=== PATIENT | male | born 1935 | race Caucasian/White ===

== ENCOUNTER 2023-12-13 08:19 | Observation (INO) ==
--- NOTE | 2023-12-13 08:37 | Emergency Department Note ---
Impression & Plan Weakness, Elevated erythrocyte sedimentation rate, CRP elevated ED Provider Note NAME: MOMO PALMA AGE: 88 SEX: M : 1935 ARRIVES VIA: Walk-In INFORMANT: Patient ED PROVIDER(S): Saulo Hairston MD CHIEF COMPLAINT: Weakness, body pain. PLAN: Disposition: Admit MEDICAL DECISION MAKING: The patient is a pleasant 88-year-old gentleman who presents to emergency department via walk-in accompanied by family for evaluation of progressive worsening of symptoms of lower extremity pain and weakness that has been ongoing for months with development over the past 24 hours of bilateral shoulder pain and weakness with generalized bodyaches. Family described that the symptoms have been going on for months with progressive worsening and they describe a pattern where it will be difficult for him to move early in the day but as the day moves on he is able to move around better. The patient is a poor historian regarding his follow-up with his outpatient providers regarding his symptoms and reports they had suggested arthritis and [facility] and they recommended [facility] but he did not want to participate this. They report that the patient is at risk for tick exposures and wonders if this could be playing a role. They deny any fevers, cough, congestion, chest pain or shortness of breath. On evaluation patient is fatigued appearing but no distress, afebrile heart in the 100s and blood pressure 150s/70s and vital signs otherwise stable. He appears clinically dry. He has no edema or warmth of joints. He exhibits masked facies. However no tremors or cogwheel rigidity. He has 4/5 strength of bilateral lower and upper extremities with the exception of initiation of arm raise but his arms are raised passively he is able to maintain them elevated. Reflexes are within normal limits. There is no clonus. EKG without overt acute ischemia. CXR negative for acute cardiopulmonary process per my personal preliminary review/interpretation. Metallic foreign body of the right lower neck is noted and discussed with the patient and correlates with remote foreign body fragment resulting from an injury when he was hammering a steel spike into wood. WBC 13.5 K with lymphopenia and neutrophilia but no left shift, nonspecific. H/H11.7/35.6 without prior for comparison. Platelets 5 22K, nonspecific and likely reactive. Chemistry without metabolic acidosis. Electrolytes and LFTs are unremarkable. ESR and CRP are elevated 64 and 9.9, respectively. High- sensitivity troponin 9.9, within normal limits. Procalcitonin is not elevated. UA without evidence of infection. Respiratory BioFire was negative. CT of the head and CT of the head and neck were performed and were negative for ICH, ischemia or occlusion of large vessels. 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 Further description of radiodense metallic foreign body in the soft tissue of the right lower neck is again described and correlates with the patient's remote history of foreign body fragment and thus unable to have MRI. On re-evaluation the patient denied any significant improvement following IV fluid hydration and IV Decadron. However his did note that he was able to ambulate independently to the bathroom which was an improvement. We did discuss the extent of his symptoms which are progressively becoming more severe. Given elevated inflammatory markers suspect possible inflammatory process. Tickborne illness is also still considered though preliminary Lyme screen was negative as was Anaplasma and Babesia smears with DNA testing pending. Given the patient's reflexes are intact Guillain-Mahan is unlikely. Ultimately, the patient and family do agree with plan for admission for further evaluation. Case was discussed with Ranjith Street, [facility] will evaluate the patient for admission. Triage Nursing notes reviewed and agree them. Prior/external medical records reviewed Vital Signs: reviewed Differential diagnosis: Infection, dehydration, metabolic abnormality, hypo/hyperglycemia, electrolyte disturbance, anemia, hypoxia, cardiac sources, intracerebral event, toxicologic, neurologic, as well as other pathologies. ER treatment provided: See below. Diagnostics interpreted by me: ECG: Sinus tachycardia, 95 bpm, PACs, no overt ST ovation or depression, QTc 447, QRS 74. Cardiac Monitoring: An order for continuous cardiac monitoring was placed and demonstrated Sinus tachycardia, 95 bpm, PACs. Laboratory studies: See below Imaging studies: See below Consultation(s): Ranjith Street, [facility] HPI: The patient is a pleasant 88-year-old gentleman who presents to emergency department via walk-in accompanied by family for evaluation of progressive worsening of symptoms of lower extremity pain and weakness that has been ongoing for months with development over the past 24 hours of bilateral shoulder pain and weakness with generalized bodyaches. Family described that the symptoms have been going on for months with progressive worsening and they describe a pattern where it will be difficult for him to move early in the day but as the day moves on he is able to move around better. The patient is a poor historian regarding his follow-up with his outpatient providers regarding his symptoms and reports they had suggested arthritis and [facility] and they recommended physical therapy but he did not want to participate this. They report that the patient is at risk for tick exposures and wonders if this could be playing a role. They deny any fevers, cough, congestion, chest pain or shortness of breath. ROS: See above HPI for pertinent positives & negatives. A total of 10 systems reviewed and were otherwise negative. VITALS:See Below PHYSICAL EXAMINATION: GENERAL: Awake, alert, fatigued-appearing, in no distress HENT: Normocephalic, atraumatic. Oropharynx with dry mucous membranes and otherwise unremarkable. EYES: Normal conjunctiva. Sclera non-icteric. NECK: Supple. No nuchal rigidity. FROM. No JVD. RESPIRATORY: Clear to auscultation. CARDIAC: Regular rate, normal rhythm. Extremities warm and well perfused. Pulses equal. ABDOMEN: Soft, non-distended. No tenderness to palpation. No rebound or guarding. No masses. MUSCULOSKELETAL: Chest examination reveals no tenderness. The back is symmetrical on inspection without obvious abnormality. There is no CVA tenderness to palpation. No edema or warmth of joints. LOWER EXTREMITIES: Calves are equal size bilaterally and non-tender. No edema. No discoloration. NEURO: He exhibits masked facies. However no tremors or cogwheel rigidity. He has 4/5 strength of bilateral lower and upper extremities with the exception of initiation of arm raise but his arms are raised passively he is able to maintain them elevated. Reflexes are within normal limits. There is no clonus. SKIN: No rash or jaundice noted. 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 Required: No Beliefs That Will Affect Care: None Current Living Situation: Spouse Feels Safe at Home: Yes Safety Concerns: Feels Safe At This Time Assistive Devices: None Allergies Allergies Allergy/AdvReac Type Severity Reaction Status Date / Time No Known Allergies Allergy Unverified 12/13/23 11:05 Home Meds Home Medications Medication Instructions Recorded Confirmed bimatoprost 0.01 % eye drops 1 drp ophthalmic (eye) BID 12/13/23 12/13/23 (Lumigan) brinzolamide 1 %-brimonidine 0.2 % 1 drp OPL BID 12/13/23 12/13/23 eye drops,suspension (Simbrinza) famciclovir 500 mg tablet 500 mg PO DAILY 12/13/23 12/13/23 ibuprofen 1 tab PO DIRECTED PRN Pain 12/13/23 12/13/23 Results & Data (ED) Vital Signs Vital Signs - 24 hr 12/13/23 08:22 12/13/23 08:22 12/13/23 08:51 Temperature 36.4 C L Temperature Source Oral Pulse Rate 108 H 88 Pulse Rate [Apical] Pulse Rhythm Regular Pulse Rhythm [Apical] Pulse Strength Weak Respiratory Rate 20 Respiratory Effort / Characteristics Non-Labored Spontaneous Respiratory Depth Normal Respiratory Pattern Regular Blood Pressure 155/77 H Blood Pressure [Right Arm] Blood Pressure Mean 103 Blood Pressure Mean [Right Arm] Blood Pressure Position Sitting Blood Pressure Position [Right Arm] Pulse Oximetry 90 90 Oxygen Delivery Method Room Air Room Air Sepsis Recent Fever Within 48 Hours No Sepsis New/Unexplained Change in Mental Status No Sepsis Action Taken by Nursing No Action Required 12/13/23 10:12 12/13/23 10:12 12/13/23 12:00 Temperature Temperature Source Pulse Rate 70 Pulse Rate [Apical] 70 90 Pulse Rhythm Pulse Rhythm [Apical] Pulse Strength Respiratory Rate 18 17 Respiratory Effort / Characteristics Non-Labored Spontaneous Non-Labored Spontaneous Respiratory Depth Normal Normal Respiratory Pattern Regular Blood Pressure Blood Pressure [Right Arm] 174/83 H 172/86 H Blood Pressure Mean Blood Pressure Mean [Right Arm] 113 114 Blood Pressure Position Blood Pressure Position [Right Arm] Semi-fowlers Semi-fowlers Pulse Oximetry 97 94 95 Oxygen Delivery Method Room Air Room Air Room Air Sepsis Recent Fever Within 48 Hours Sepsis New/Unexplained Change in Mental Status Sepsis Action Taken by Nursing 12/13/23 12:54 12/13/23 14:00 Temperature Temperature Source Pulse Rate 88 Pulse Rate [Apical] 86 Pulse Rhythm Pulse Rhythm [Apical] Regular Pulse Strength Respiratory Rate 19 Respiratory Effort / Characteristics Non-Labored Spontaneous Respiratory Depth Normal Respiratory Pattern Blood Pressure Blood Pressure [Right Arm] 187/98 H Blood Pressure Mean Blood Pressure Mean [Right Arm] 127 Blood Pressure Position Blood Pressure Position [Right Arm] Semi-fowlers Pulse Oximetry 92 Oxygen Delivery Method Room Air Sepsis Recent Fever Within 48 Hours Sepsis New/Unexplained Change in Mental Status Sepsis Action Taken by Nursing Laboratory Data Attestation: I reviewed the patient's lab results. 12/13/23 09:01 12/13/23 09:01 Lab Results 12/13/23 12/13/23 12/13/23 Range/Units 08:55 09:01 09:33 WBC 13.58 H (4.8-10.8) K/ul RBC 4.15 L (4.70-6.10) M/uL Hgb 11.7 L (14.0-18.0) g/dl Hct 35.6 L (42.0-52.0) % MCV 85.8 (80.0-100.0) fL MCH 28.2 (25.0-34.0) pg MCHC 32.9 (32.0-36.0) g/dL RDW Std Deviation 38.1 (36.4-46.3) fL RDW Coeff of Vinod 12.1 (11.5-14.5) % Plt Count 522 H (130-400) K/uL MPV 8.7 L (9.4-12.4) fL Immature Gran % (Auto) 0.5 % Neut % (Auto) 78.6 % Lymph % (Auto) 7.2 % Pepin % (Auto) 12.6 % Eos % (Auto) 0.7 % Baso % (Auto) 0.4 % Neut # (Auto) 10.67 H (1.40-6.50) K/uL Lymph # (Auto) 0.98 L (1.20-3.40) K/uL Pepin # (Auto) 1.71 H (0.11-0.59) K/uL Eos # (Auto) 0.10 (0.00-0.50) K/uL Baso # (Auto) 0.05 (0.00-0.20) K/uL Immature Gran # (Auto) 0.07 (0.01-0.20) K/uL ESR 64 H (0-20) mm/hr PT 11.0 (9.0-12.0) Seconds INR 1.0 (0.9-1.1) Sodium 137 (136-145) mmol/L Potassium 3.7 (3.5-5.1) mmol/L Chloride 103 (98-107) mmol/L Carbon Dioxide 26 (21-32) mmol/L Anion Gap 8 (3-11) BUN 15 (6-23) mg/dl Creatinine 0.81 (0.6-1.4) mg/dl Est Cr Clr Drug Dosing 57.4 ml/min eGFR 85.87 BUN/Creatinine Ratio 18.5 (10-20) Glucose 131 H (70-99(Fasting)) mg/dl Calcium 8.9 (8.6-10.3) mg/dl Magnesium 1.9 (1.7-2.4) mg/dl Total Bilirubin 0.7 (0.2-1.0) mg/dl AST 28 (13-39) U/L ALT 48 (7-52) U/L Alkaline Phosphatase 82 (34-104) U/L Troponin I High Sens 9.9 (0-20) pg/ml C-Reactive Protein 9.90 H (0-0.5) mg/dl Total Protein 6.7 (6.0-8.3) gm/dl Albumin 3.3 L (3.4-5.0) gm/dl Globulin 3.4 (2.5-4.0) gm/dl Albumin/Globulin Ratio 1.0 (0.9-2) Lipase 9 L (11-82) U/L Procalcitonin 0.07 (0-0.5) ng/ml Urine Color Urine Appearance (Clear) Urine pH (4.5-7.5) Ur Specific [place] (1.000-1.030) Urine Protein (Negative) Urine Glucose (UA) (Negative) Urine Ketones (Negative) Urine Blood (Negative) Urine Nitrite (Negative) Urine Bilirubin (Negative) Urine Urobilinogen (Negative) Ur Leukocyte Esterase (Negative) Adenovirus (PCR) Not Detected (NotDetected) Anaplasma Smear See Comment Cancelled Babesia Smear See Comment Cancelled B. pertussis DNA (PCR) Not Detected (NotDetected) B.parapertussis DNA PCR Not Detected (NotDetected) Lyme Disease Screen Negative (Negative) C. pneumoniae DNA (PCR) Not Detected (NotDetected) Coronavirus OC43 (PCR) Not Detected (NotDetected) Coronavirus HKU1 (PCR) Not Detected (NotDetected) Coronavirus 229E (PCR) Not Detected (NotDetected) SARS-CoV-2 (PCR) Not Detected (NotDetected) Coronavirus NL63 (PCR) Not Detected (NotDetected) Human Metapneumovir PCR Not Detected (NotDetected) Influenza Type A (PCR) Not Detected (NotDetected) Influenza Type B (PCR) Not Detected (NotDetected) M. pneumoniae (PCR) Not Detected (NotDetected) Parainfluenza 1 (PCR) Not Detected (NotDetected) Parainfluenza 2 (PCR) Not Detected (NotDetected) Parainfluenza 3 (PCR) Not Detected (NotDetected) Parainfluenza 4 (PCR) Not Detected (NotDetected) RSV (PCR) Not Detected (NotDetected) Entero/Rhino (PCR) Not Detected (NotDetected) 12/13/23 Range/Units 09:58 WBC (4.8-10.8) K/ul RBC (4.70-6.10) M/uL Hgb (14.0-18.0) g/dl Hct (42.0-52.0) % MCV (80.0-100.0) fL MCH (25.0-34.0) pg MCHC (32.0-36.0) g/dL RDW Std Deviation (36.4-46.3) fL RDW Coeff of Vinod (11.5-14.5) % Plt Count (130-400) K/uL MPV (9.4-12.4) fL Immature Gran % (Auto) % Neut % (Auto) % Lymph % (Auto) % Pepin % (Auto) % Eos % (Auto) % Baso % (Auto) % Neut # (Auto) (1.40-6.50) K/uL Lymph # (Auto) (1.20-3.40) K/uL Pepin # (Auto) (0.11-0.59) K/uL Eos # (Auto) (0.00-0.50) K/uL Baso # (Auto) (0.00-0.20) K/uL Immature Gran # (Auto) (0.01-0.20) K/uL ESR (0-20) mm/hr PT (9.0-12.0) Seconds INR (0.9-1.1) Sodium (136-145) mmol/L Potassium (3.5-5.1) mmol/L Chloride (98-107) mmol/L Carbon Dioxide (21-32) mmol/L Anion Gap (3-11) BUN (6-23) mg/dl Creatinine (0.6-1.4) mg/dl Est Cr Clr Drug Dosing ml/min eGFR BUN/Creatinine Ratio (10-20) Glucose (70-99(Fasting)) mg/dl Calcium (8.6-10.3) mg/dl Magnesium (1.7-2.4) mg/dl Total Bilirubin (0.2-1.0) mg/dl AST (13-39) U/L ALT (7-52) U/L Alkaline Phosphatase (34-104) U/L Troponin I High Sens (0-20) pg/ml C-Reactive Protein (0-0.5) mg/dl Total Protein (6.0-8.3) gm/dl Albumin (3.4-5.0) gm/dl Globulin (2.5-4.0) gm/dl Albumin/Globulin Ratio (0.9-2) Lipase (11-82) U/L Procalcitonin (0-0.5) ng/ml Urine Color Yellow Urine Appearance Clear (Clear) Urine pH 5.5 (4.5-7.5) Ur Specific [place] 1.010 (1.000-1.030) Urine Protein Negative (Negative) Urine Glucose (UA) Negative (Negative) Urine Ketones Negative (Negative) Urine Blood Negative (Negative) Urine Nitrite Negative (Negative) Urine Bilirubin Negative (Negative) Urine Urobilinogen Negative (Negative) Ur Leukocyte Esterase Negative (Negative) Adenovirus (PCR) (NotDetected) Anaplasma Smear Babesia Smear B. pertussis DNA (PCR) (NotDetected) B.parapertussis DNA PCR (NotDetected) Lyme Disease Screen (Negative) C. pneumoniae DNA (PCR) (NotDetected) Coronavirus OC43 (PCR) (NotDetected) Coronavirus HKU1 (PCR) (NotDetected) Coronavirus 229E (PCR) (NotDetected) SARS-CoV-2 (PCR) (NotDetected) Coronavirus NL63 (PCR) (NotDetected) Human Metapneumovir PCR (NotDetected) Influenza Type A (PCR) (NotDetected) Influenza Type B (PCR) (NotDetected) M. pneumoniae (PCR) (NotDetected) Parainfluenza 1 (PCR) (NotDetected) Parainfluenza 2 (PCR) (NotDetected) Parainfluenza 3 (PCR) (NotDetected) Parainfluenza 4 (PCR) (NotDetected) RSV (PCR) (NotDetected) Entero/Rhino (PCR) (NotDetected) Administered Medications Amlodipine Besylate (Amlodipine Besylate 5 Mg Tab) 5 mg PO QAM [facility] Stop: 01/12/24 20:14 Last Admin: 12/13/23 22:16 Dose: 5 mg Documented By: CR Bimatoprost (Bimatoprost 0.01% Op Soln 2.5 Ml Btl) 1 drops OP BID [facility] Stop: 01/12/24 20:59 Last Admin: 12/13/23 22:18 Dose: 1 drops Documented By: CR Brimonidine Tartrate (Brimonidine Tartrate 0.2% 5ml) 1 drops OPL BID [facility] Stop: 01/12/24 20:59 Last Admin: 12/13/23 22:17 Dose: 1 drops Documented By: CR Brinzolamide (Brinzolamide (Azopt) Ops 10 Ml Btl) 1 drops OPL BID [facility] Stop: 01/12/24 20:59 Last Admin: 12/13/23 22:19 Dose: 1 drops Documented By: MELANIE Heparin Sodium (Porcine) (Heparin Sod 5,000 Unit/0.5 Ml Vial) 5,000 units SQ Q8 [facility] Stop: 01/12/24 21:59 Last Admin: 12/13/23 22:18 Dose: 5,000 units Documented By: MELANIE Discontinued Medications Dexamethasone Sodium Phosphate (DexamethasonePf 10 Mg/Ml Vial) 10 mg IV NOW ONE Stop: 12/13/23 13:08 Last Admin: 12/13/23 13:13 Dose: 10 mg Documented By: FAM Sodium Chloride (Nss) 1,000 mls @ 999 mls/hr IV .Q1H1M ONE Stop: 12/13/23 10:26 Last Infusion: 12/13/23 11:48 Dose: Infused Documented By: Admin: 12/13/23 09:31 Dose: 999 mls/hr Documented By: FAM Ioversol (Optiray 320 125ml) 112 ml IV ONCE ONE Stop: 12/13/23 13:27 Last Admin: 12/13/23 13:26 Dose: 112 ml Documented By: EDU Imaging Data Radiologist's Impression: Head CT 12/13/23 13:05 CT head/brain wo con CLINICAL HISTORY: weakness Technique: Contiguous axial CT images of the head were acquired from the base of the skull to the vertex without intravenous contrast administration. Images were viewed in brain, subdural and bone windows. Automated dose lowering techniques and/or adjustment according to patient size were utilized for this exam. Comparison: None available at the time of this dictation. Findings: Areas of decreased attenuation are present in the periventricular and subcortical white matter bilaterally consistent with small vessel ischemic disease. Generalized cerebral atrophy with commensurate enlargement of the ventricles, sulci, and cisterns is also present. There is no acute intracranial hemorrhage or evidence of acute territorial infarction. No shift of the midline structures, mass effect, or extra-axial abnormalities are shown. Atherosclerotic calcifications are present in the intracranial segments of the internal carotid arteries. Imaged portions of the paranasal sinuses and mastoid air cells are clear. The orbits appear normal. There are no acute fractures of the calvaria or scalp swelling. Impression: No acute intracranial hemorrhage, no evidence of acute territorial infarction or other acute intracranial disease process. ACT 112: Negative or not required by law. Electronically signed by: Rafal Persaud M.D. 12/13/2023 1:54 PM Head CTA 12/13/23 13:05 CT angio head w con CLINICAL HISTORY: 88 years-old Male with weakness. Acute weakness with stroke like symptoms COMPARISON STUDY: Head CT of same day TECHNIQUE: Following the IV administration of 112 cc of Optiray, CT angiogram of the brain was performed from the skull base to the vertex. Images are reviewed in the axial, sagittal, and coronal planes. 3-D MIPS images are created and assessed. IV contrast was administered without complication. All measurements were obtained according to NASCET criteria. A dose lowering technique was utilized adhering to the principles of ALARA. FINDINGS: CT ANGIOGRAM OF THE BRAIN: The imaged bilateral internal carotid arteries are patent. The bilateral anterior and middle cerebral arteries are also patent. Areas of stenoses noted within the M2 and 3 segments of the bilateral middle cerebral arteries, notably with a 1 cm focus of high-grade stenosis of the right M2 segment on image 143 series 5. The vertebrobasilar system and posterior cerebral arteries are widely patent. There is no aneurysm, high-grade stenosis, or proximal branch occlusion identified. Dural sinuses appear patent. 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 Prior bilateral lens repair. IMPRESSION: 1. No aneurysm, dissection or arterial occlusion identified. 2. 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 ACT 112: Negative or not required by law. The above report was generated using voice recognition software. It may contain grammatical, syntax or spelling errors. Electronically signed by: Levi Tolliver M.D. 12/13/2023 2:30 PM Discharge Plan Visit Data Chief Complaint: Weakness Stated Complaint: BODY ACHES, L LEG PAIN, WEAKNESS ED Provider: Saulo Hairston Discharge Problem: Weakness, Elevated erythrocyte sedimentation rate, CRP elevated Patient Disposition: Admitted As Inpatient Discharge Instructions Interventions: ED Discharge Assessment Last Done: 12/13/23 15:54
--- NOTE | 2023-12-13 09:03 | XRay Report ---
SINGLE VIEW CHEST CLINICAL HISTORY: Atypical chest pain. FINDINGS: 2 AP, portable, upright chest radiographs are obtained. No prior studies are available for comparison at the time of dictation. The cardiomediastinal silhouette is top normal for projection no ozzy atherosclerotic calcification of the thoracic aorta. Nonspecific interstitial thickening is likel y chronic. There is mild bibasilar scarring/atelectasis. No airspace consolidation or large pleural e ffusion is identified. No pneumothorax is seen. The skeletal structures are osteopenic. The bony thor ax is grossly intact. Degenerative change is noted in the shoulders. A radiodense/metallic foreign sneha dy projects over the right supraclavicular soft tissues. IMPRESSION: No acute cardiopulmonary abnormality is identified. ACT 112: Negative or not required by law. Electronically signed by: Jacob Albrecht M.D. 12/13/2023 9:02 AM
[2023-12-13 09:29] LABS: Basophils # (auto) 0.05 K/uL (0.00-0.20); Basophils % (auto) 0.4 %; Eosinophils % (auto) 0.7 %; Hematocrit (blood only) 35.6 % (42.0-52.0); Hemoglobin 11.7 g/dl (14.0-18.0); Immature Granulocytes # (auto) 0.07 K/uL (0.01-0.20); Immature Granulocytes % (auto) 0.5 %; Lymphocytes # (auto) 0.98 K/uL (1.20-3.40); Lymphocytes % (auto) 7.2 %; Mean Corpuscular Hemoglobin 28.2 pg (25.0-34.0); Mean Corpuscular Hgb Conc 32.9 g/dL (32.0-36.0); Mean Corpuscular Volume 85.8 fL (80.0-100.0); Mean Platelet Volume 8.7 fL (9.4-12.4); Monocytes # (auto) 1.71 K/uL (0.11-0.59); Monocytes % (auto) 12.6 %; Neutrophils # (auto) 10.67 K/uL (1.40-6.50); Neutrophils % (auto) 78.6 %; Platelet Count 522 K/uL (130-400); RDW Coefficient of Variation 12.1 % (11.5-14.5); RDW Standard Deviation 38.1 fL (36.4-46.3); Red Blood Count 4.15 M/uL (4.70-6.10); White Blood Count 13.58 K/ul (4.8-10.8)
[2023-12-13] MEDS: SODIUM CHLORIDE 0.9% 1,000 ML IV ONE (09:31)
[2023-12-13 09:46] LABS: Albumin Level 3.3 gm/dl (3.4-5.0); BUN Creatinine Ratio 18.5 (10-20); Bilirubin,Total 0.7 mg/dl (0.2-1.0); Calcium 8.9 mg/dl (8.6-10.3); Creatinine Clr Calc Pharmacy 57.4 ml/min; Globulin 3.4 gm/dl (2.5-4.0); Magnesium 1.9 mg/dl (1.7-2.4); Potassium 3.7 mmol/L (3.5-5.1); Total Protein 6.7 gm/dl (6.0-8.3)
[2023-12-13 09:51] LABS: Troponin I High Sensitivity 9.9 pg/ml (0-20)
[2023-12-13 10:18] LABS: Adenovirus PCR Not Detected (NotDetected); Bordetella parapertussis PCR Not Detected (NotDetected); Bordetella pertussis PCR Not Detected (NotDetected); Chlamydia pneumoniae PCR Not Detected (NotDetected); Coronavirus 229E PCR Not Detected (NotDetected); Coronavirus CoV-2 (COVID19)PCR Not Detected (NotDetected); Coronavirus HKU1 PCR Not Detected (NotDetected); Coronavirus NL63 PCR Not Detected (NotDetected); Coronavirus OC43PCR Not Detected (NotDetected); Human Metapneumovirus PCR Not Detected (NotDetected); Influenza A PCR Not Detected (NotDetected); Influenza B PCR Not Detected (NotDetected); Mycoplasma pneumoniae PCR Not Detected (NotDetected); Parainfluenza Virus 1 PCR Not Detected (NotDetected); Parainfluenza Virus 2 PCR Not Detected (NotDetected); Parainfluenza Virus 3 PCR Not Detected (NotDetected); Parainfluenza Virus 4 PCR Not Detected (NotDetected); Respiratory Syncytial VirusPCR Not Detected (NotDetected); Rhinovirus/Enterovirus PCR Not Detected (NotDetected)
[2023-12-13 10:32] LABS: Appearance Urine Clear (Clear); Bilirubin Urine Negative (Negative); Blood Urine Negative (Negative); Color Urine Yellow; Glucose Urine UA Negative (Negative); Ketones Urine Negative (Negative); Leukocyte Esterase Urine Negative (Negative); Nitrite Urine Negative (Negative); Protein Urine Negative (Negative); Urobilinogen Urine Negative (Negative); pH Urine 5.5 (4.5-7.5)
[2023-12-13 10:34] LABS: Procalcitonin 0.07 ng/ml (0-0.5)
[2023-12-13 11:00] LABS: Lyme Screen Rflx Confirmation Negative (Negative)
[2023-12-13] MEDS: dexAMETHasone**PF** 10 MG/ML VIAL IV ONE (13:13)
[2023-12-13] MEDS: OPTIRAY 320 125ml IV ONE (13:26)
--- NOTE | 2023-12-13 13:46 | CT Scan Report ---
CT ANGIOGRAM OF THE NECK CLINICAL HISTORY: Generalized weakness. COMPARISON STUDY: No priors. TECHNIQUE: Following the IV administration of 112 of Optiray 320, CT angiogram of the neck was perfor med from the aortic arch to the skull base. Images are reviewed in the axial, sagittal, and coronal p lanes. 3-D MIPS images are created and assessed. IV contrast was administered without complication. A ll measurements were calculated based on NASCET criteria. A dose lowering technique was utilized adh ering to the principles of ALARA. CT DOSE: 1002.42 mGy.cm FINDINGS: Thoracic aorta: There is atherosclerotic calcification of the thoracic aorta. Visualized portions of the thoracic aorta are normal in caliber. The aortic arch demonstrates standard 3-vessel anatomy. Right carotid arterial system: The right common carotid artery is widely patent. Advanced atheroscler otic plaque in the carotid bulb causes less than 50% narrowing at the origin of the internal carotid artery. The remainder of the right internal carotid artery and external carotid artery are widely pat ent. There is ulcerated plaque seen in the proximal right internal carotid artery on axial image #217 . Left carotid arterial system: The left common carotid artery is widely patent noting advanced atheros clerotic plaque and irregularity. Advanced atherosclerotic plaque in the carotid bulb causes less aleena n 50% stenosis of the origin of the left internal carotid artery. The remainder of the internal carot id arteries widely patent. There is moderate focal stenosis at the origin of the left external caroti d artery. Vertebral arteries: The vertebral arteries are widely patent bilaterally and codominant. Subclavian arteries: Widely patent bilaterally. Jugular veins: Patent bilaterally. Brain parenchyma: The visualized brain parenchyma the skull base is within normal limits. Lung apices: There is advanced emphysema. Partially visualized upper lobe lung parenchyma otherwise a ppears clear. Soft tissues: The visualized pharyngeal soft tissues are normal in appearance noting angiographic pha se technique. The oropharyngeal airway appears widely patent. The salivary and thyroid glands are nor mal in appearance. No cervical lymphadenopathy is seen. A radiodense/metallic foreign body seen in th e soft tissues of the anterior right lower neck on image #178. Skeletal structures: The skeletal structures are osteopenic. The visualized calvarium at the skull ba se appears intact. The imaged cervical spine is within normal limits. Sinuses and mastoids: The visualized paranasal sinuses are clear. The mastoid air cells are well pneu matized. Cerumen is noted in the external auditory canals. IMPRESSION: 1. Atherosclerotic plaque in the carotid bulbs causing less than 50% luminal narrowing at the origin of both internal carotid arteries. 2. There is moderate focal stenosis at the origin of the left external carotid artery. 3. Ulcerated plaque is seen in the proximal right ICA. 4. Emphysema. 5. A radiodense/metallic foreign body is seen in the soft tissues of the right lower neck. ACT 112: Negative or not required by law. Electronically signed by: Jacob Albrecht M.D. 12/13/2023 1:44 PM
--- NOTE | 2023-12-13 13:55 | CT Scan Report ---
CT head/brain wo con CLINICAL HISTORY: weakness Technique: Contiguous axial CT images of the head were acquired from the base of the skull to the jose alberto jennifer without intravenous contrast administration. Images were viewed in brain, subdural and bone [facility]. Automated dose lowering techniques and/or adjustment according to patient size were utilized for this exam. Comparison: None available at the time of this dictation. Findings: Areas of decreased attenuation are present in the periventricular and subcortical white matter bilate rally consistent with small vessel ischemic disease. Generalized cerebral atrophy with commensurate e nlargement of the ventricles, sulci, and cisterns is also present. There is no acute intracranial hem orrhage or evidence of acute territorial infarction. No shift of the midline structures, mass effect, or extra-axial abnormalities are shown. Atherosclerotic calcifications are present in the intracran ial segments of the internal carotid arteries. Imaged portions of the paranasal sinuses and mastoid air cells are clear. The orbits appear normal. There are no acute fractures of the calvaria or scalp swelling. Impression: No acute intracranial hemorrhage, no evidence of acute territorial infarction or other acute intracra nial disease process. ACT 112: Negative or not required by law. Electronically signed by: Rafal Persaud M.D. 12/13/2023 1:54 PM
--- NOTE | 2023-12-13 14:32 | CT Scan Report ---
CT angio head w con CLINICAL HISTORY: 88 years-old Male with weakness. Acute weakness with stroke like symptoms COMPARISON STUDY: Head CT of same day TECHNIQUE: Following the IV administration of 112 cc of Optiray, CT angiogram of the brain was perfor med from the skull base to the vertex. Images are reviewed in the axial, sagittal, and coronal planes . 3-D MIPS images are created and assessed. IV contrast was administered without complication. All me asurements were obtained according to NASCET criteria. A dose lowering technique was utilized adherin g to the principles of ALARA. FINDINGS: CT ANGIOGRAM OF THE BRAIN: The imaged bilateral internal carotid arteries are patent. The bilateral anterior and middle cerebral arteries are also patent. Areas of stenoses noted within the M2 and 3 segments of the bilateral midd le cerebral arteries, notably with a 1 cm focus of high-grade stenosis of the right M2 segment on russell ge 143 series 5. The vertebrobasilar system and posterior cerebral arteries are widely patent. There is no aneurysm, high-grade stenosis, or proximal branch occlusion identified. Dural sinuses appear pa tent. 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 Prior bilateral lens repair. IMPRESSION: 1. No aneurysm, dissection or arterial occlusion identified. 2. 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 ACT 112: Negative or not required by law. The above report was generated using voice recognition software. It may contain grammatical, syntax o r spelling errors. Electronically signed by: Levi Tolliver M.D. 12/13/2023 2:30 PM
--- NOTE | 2023-12-13 15:24 | Electrocardiogram Report ---
Test Reason : Blood Pressure : */* mmHG Vent. Rate : 95 BPM Atrial Rate : 129 BPM P-R Int : * ms QRS Dur : 74 ms QT Int : 356 ms P-R-T Axes : 55 23 29 degrees QTcB Int : 447 ms Sinus tachycardia Premature atrial complexes Premature ventricular complexes Cannot rule out Anterior infarct , age undetermined Abnormal ECG No previous ECGs available Confirmed by Toy Foster ([id number]) on 12/13/2023 3:24:21 PM Referred By: REFERRED SELF Confirmed By: Toy Foster
--- NOTE | 2023-12-13 16:00 | History & Physical Report ---
Date of Service December 13, 2023 Assessment & Plan (1) Weakness: (2) HTN (hypertension): Plan Assessment and plan: Generalized weaknessrule out CVA Bilateral upper extremity weakness: Reports bilateral lower extremity weakness x 1 month with abnormal gait Reports over the past few days developed Bilateral upper extremity weakness Head CT/head/neck CTA negative for anything acute, unable to get MRI of head due to metallic object in the neck Consult neurology, autoimmune workup initiated Differential diagnosis includes myasthenia gravis, rheumatoid arthritis, myositis Focal stenosis: Head/neck CTA showed 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 Moderate focal stenosis at the origin of left external carotid artery Vascular surgery consulted Elevated blood pressure without history of HTN: SBP's in 180s, as needed hydralazine ordered, permissive hypertension x 24 hours for possible stroke A total of 60 minutes was spent on chart review/reviewing medical rec ords/facilitating plan of care/reviewing diagnostic/laboratory testing/discussion with consultants Full code DVT prophylaxis: Heparin subcu History of Present Illness Chief Complaint: Generalized and worsening weakness Primary Care Provider: Paul Tomlinson PA-C The patient is an 88-year-old male with past medical history of left eye blindness and no other significant past medical history who presents to the ED on 12/13/2023 with complaints of worsening weakness. The patient is a poor historian. The patient son is at bedside and the patient lives with his currently. The patient reports his weakness started about a month ago and started with thigh pain on the left side. He reports it is hard for him to get up originally in the morning but once he starts to move his legs are less stiff but does report an unsteady gait. He reports over the past few days his arms became weak bilaterally. He reports some associated shoulder pain. He denies any history of autoimmune disorders. He denies any family history of autoimmune disorders. He denies any recent travel. [place] but denies any known recent tick bites. On exam, the patient is slow to respond. There is equal strength in his bilateral extremities. He is unable to lift his arms up high but is able to hold his arms if passive range of motion is initiated. Patient denies any shortness of breath or chest pain. He denies any trouble swallowing. He denies any blurry vision. Patient's mental baseline is unclear. 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 Atherosclerotic plaque in the carotid bulbs causing less than 50% luminal narrowing at the origin of both internal carotid arteries. 2. There is moderate focal stenosis at the origin of the left external carotid artery. 3. Ulcerated plaque is seen in the proximal right ICA. 4. Emphysema. 5. A radiodense/metallic foreign body is seen in the soft tissues of the right lower neck. The patient will be admitted for rule out stroke and neurological workup Allergies Allergy/AdvReac Type Severity Reaction Status Date / Time No Known Allergies Allergy Unverified 12/13/23 11:05 Home Medications Medication Instructions Recorded Confirmed Type bimatoprost 0.01 % eye drops 1 drp ophthalmic (eye) BID 12/13/23 12/13/23 History (Lumigan) brinzolamide 1 %-brimonidine 0.2 % 1 drp OPL BID 12/13/23 12/13/23 History eye drops,suspension (Simbrinza) famciclovir 500 mg tablet 500 mg PO DAILY 12/13/23 12/13/23 History ibuprofen 1 tab PO DIRECTED PRN Pain 12/13/23 12/13/23 History Past Med/Surg History Problem List (Updated 12/13/23 @ 19:14 by Anurag Hernandez MD) Polymyalgia rheumatica CRP elevated (Acute) Elevated erythrocyte sedimentation rate (Acute) HTN (hypertension) Weakness (Acute) Social History Smoking Status: Former smoker Tobacco Type: Cigarettes and Cigars Second Hand Exposure: No; Do You Dip or Chew Tobacco: No; Tobacco Cessation Education Requested by Patient: No Hx Alcohol Use: Yes Alcohol type: beer Hx Substance Use: No Preferred Language: Czech Lip Of Shank Cutter Required: No Beliefs That Will Affect Care: None Current Living Situation: Spouse Feels Safe at Home: Yes Safety Concerns: Feels Safe At This Time Assistive Devices: None Review of Systems Review of Systems: All systems reviewed & are unremarkable except as noted in HPI & below Physical Exam Constitutional: WD/WN, vitals as above well developed; no acute distress Eyes: PERRL, conjunctivae normal, anicteric sclerae (Left eye blindness) ENMT: external ear and nose normal, oropharynx normal Neck: trachea midline, no thyromegaly Respiratory: normal respiratory effort, lungs clear to auscultation Cardiovascular: RRR, no murmur, no edema Chest (Breasts): normal inspection/palpation of breasts Gastrointestinal (Abdomen): normal bowel sounds, soft, nontender, no hepato splenomegaly Musculoskeletal: no cyanosis or clubbing, extremities motor strength 5/5 Skin: no rashes, warm and dry (Bilateral hand swelling) Neurologic: PERRL, EOMI, accommodation nl, no face palsy, no dysarthria (Delayed response time, bilateral upper extremity weakness, reflexes intact) moves all extremities Psychiatric: A+Ox3, euthymic affect (Poor historian) Lymphatic: no cervical or axillary lymphadenopathy Results & Data Results & Data Vital Signs (Past 12 Hours) Vital Signs Temp Pulse Pulse Resp BP BP Pulse Ox 12/13/23 15:10 91 H 159/91 H 96 12/13/23 14:00 86 19 187/98 H 92 12/13/23 12:54 88 12/13/23 12:00 90 17 172/86 H 95 12/13/23 10:12 70 94 12/13/23 10:12 70 18 174/83 H 97 12/13/23 08:51 88 12/13/23 08:22 90 12/13/23 08:22 36.4 C L 108 H 20 155/77 H 90 O2 Del Method 12/13/23 15:10 Room Air 12/13/23 14:00 Room Air 12/13/23 12:54 12/13/23 12:00 Room Air 12/13/23 10:12 Room Air 12/13/23 10:12 Room Air 12/13/23 08:51 12/13/23 08:22 Room Air 12/13/23 08:22 Room Air Diagnostic Findings Laboratory Results WBC 13.58 K/ul (4.8-10.8) H 12/13/23 09:01 RBC 4.15 M/uL (4.70-6.10) L 12/13/23 09:01 Hgb 11.7 g/dl (14.0-18.0) L 12/13/23 09:01 Hct 35.6 % (42.0-52.0) L 12/13/23 09:01 MCV 85.8 fL (80.0-100.0) 12/13/23 09:01 MCH 28.2 pg (25.0-34.0) 12/13/23 09: MCHC 32.9 g/dL (32.0-36.0) 12/13/23 09:01 RDW Std Deviation 38.1 fL (36.4-46.3) 12/13/23 09: RDW Coeff of Vinod 12.1 % (11.5-14.5) 12/13/23 09: Plt Count 522 K/uL (130-400) H 12/13/23 09:01 MPV 8.7 fL (9.4-12.4) L 12/13/23 09: Immature Gran % (Auto) 0.5 % 12/13/23 09:01 Neut % (Auto) 78.6 % 12/13/23 09:01 Lymph % (Auto) 7.2 % 12/13/23 09:01 [place] % (Auto) 12.6 % 12/13/23 09:01 Eos % (Auto) 0.7 % 12/13/23 09:01 Baso % (Auto) 0.4 % 12/13/23 09:01 Neut # (Auto) 10.67 K/uL (1.40-6.50) H 12/13/23 09:01 Lymph # (Auto) 0.98 K/uL (1.20-3.40) L 12/13/23 09:01 [place] # (Auto) 1.71 K/uL (0.11-0.59) H 12/13/23 09:01 Eos # (Auto) 0.10 K/uL (0.00-0.50) 12/13/23 09:01 Baso # (Auto) 0.05 K/uL (0.00-0.20) 12/13/23 09:01 Immature Gran # (Auto) 0.07 K/uL (0.01-0.20) 12/13/23 09: ESR 64 mm/hr (0-20) H 12/13/23 09:33 PT 11.0 Seconds (9.0-12.0) 12/13/23 09:01 INR 1.0 (0.9-1.1) 12/13/23 09:01 Sodium 137 mmol/L (136-145) 12/13/23 09:01 Potassium 3.7 mmol/L (3.5-5.1) 12/13/23 09:01 Chloride 103 mmol/L (98-107) 12/13/23 09:01 Carbon Dioxide 26 mmol/L (21-32) 12/13/23 09:01 Anion Gap 8 (3-11) 12/13/23 09:01 BUN 15 mg/dl (6-23) 12/13/23 09:01 Creatinine 0.81 mg/dl (0.6-1.4) 12/13/23 09:01 Est Cr Clr Drug Dosing 57.4 ml/min 12/13/23 09: eGFR 85.87 12/13/23 09:01 BUN/Creatinine Ratio 18.5 (10-20) 12/13/23 09:01 Glucose 131 mg/dl (70-99(Fasting)) H 12/13/23 09:01 Calcium 8.9 mg/dl (8.6-10.3) 12/13/23 09:01 Magnesium 1.9 mg/dl (1.7-2.4) 12/13/23 09:01 Total Bilirubin 0.7 mg/dl (0.2-1.0) 12/13/23 09:01 AST 28 U/L (13-39) 12/13/23 09:01 ALT 48 U/L (7-52) 12/13/23 09:01 Alkaline Phosphatase 82 U/L (34-104) 12/13/23 09:01 Troponin I High Sens 9.9 pg/ml (0-20) 12/13/23 09:01 C-Reactive Protein 9.90 mg/dl (0-0.5) H 12/13/23 09:33 Total Protein 6.7 gm/dl (6.0-8.3) 12/13/23 09:01 Albumin 3.3 gm/dl (3.4-5.0) L 12/13/23 09:01 Globulin 3.4 gm/dl (2.5-4.0) 12/13/23 09:01 Albumin/Globulin Ratio 1.0 (0.9-2) 12/13/23 09:01 Lipase 9 U/L (11-82) L 12/13/23 09:01 Procalcitonin 0.07 ng/ml (0-0.5) 12/13/23 09:33 Urine Color Yellow 12/13/23 09:58 Urine Appearance Clear (Clear) 12/13/23 09:58 Urine pH 5.5 (4.5-7.5) 12/13/23 09:58 Ur Specific [place] 1.010 (1.000-1.030) 12/13/23 09:58 Urine Protein Negative (Negative) 12/13/23 09:58 Urine Glucose (UA) Negative (Negative) 12/13/23 09:58 Urine Ketones Negative (Negative) 12/13/23 09:58 Urine Blood Negative (Negative) 12/13/23 09:58 Urine Nitrite Negative (Negative) 12/13/23 09:58 Urine Bilirubin Negative (Negative) 12/13/23 09:58 Urine Urobilinogen Negative (Negative) 12/13/23 09:58 Ur Leukocyte Esterase Negative (Negative) 12/13/23 09:58 Adenovirus (PCR) Not Detected (NotDetected) 12/13/23 08:55 Anaplasma Smear Cancelled 12/13/23 09:33 Babesia Smear Cancelled 12/13/23 09:33 B. pertussis DNA (PCR) Not Detected (NotDetected) 12/13/23 08:55 B.parapertussis DNA PCR Not Detected (NotDetected) 12/13/23 08:55 Lyme Disease Screen Negative (Negative) 12/13/23 09:33 C. pneumoniae DNA (PCR) Not Detected (NotDetected) 12/13/23 08:55 Coronavirus OC43 (PCR) Not Detected (NotDetected) 12/13/23 08:55 Coronavirus HKU1 (PCR) Not Detected (NotDetected) 12/13/23 08:55 Coronavirus 229E (PCR) Not Detected (NotDetected) 12/13/23 08:55 SARS-CoV-2 (PCR) Not Detected (NotDetected) 12/13/23 08:55 Coronavirus NL63 (PCR) Not Detected (NotDetected) 12/13/23 08:55 Human Metapneumovir PCR Not Detected (NotDetected) 12/13/23 08:55 Influenza Type A (PCR) Not Detected (NotDetected) 12/13/23 08:55 Influenza Type B (PCR) Not Detected (NotDetected) 12/13/23 08:55 M. pneumoniae (PCR) Not Detected (NotDetected) 12/13/23 08:55 Parainfluenza 1 (PCR) Not Detected (NotDetected) 12/13/23 08:55 Parainfluenza 2 (PCR) Not Detected (NotDetected) 12/13/23 08:55 Parainfluenza 3 (PCR) Not Detected (NotDetected) 12/13/23 08:55 Parainfluenza 4 (PCR) Not Detected (NotDetected) 12/13/23 08:55 RSV (PCR) Not Detected (NotDetected) 12/13/23 08:55 Entero/Rhino (PCR) Not Detected (NotDetected) 12/13/23 08:55 Impressions Chest X-Ray 12/13/23 08:35 SINGLE VIEW CHEST CLINICAL HISTORY: Atypical chest pain. FINDINGS: 2 AP, portable, upright chest radiographs are obtained. No prior studies are available for comparison at the time of dictation. The cardiomediastinal silhouette is top normal for projection noted atherosclerotic calcification of the thoracic aorta. Nonspecific interstitial thickening is likely chronic. There is mild bibasilar scarring/atelectasis. No airspace consolidation or large pleural effusion is identified. No pneumothorax is seen. The skeletal structures are osteopenic. The bony thorax is grossly intact. Degenerative change is noted in the shoulders. A radiodense/metallic foreign body projects over the right supraclavicular soft tissues. IMPRESSION: No acute cardiopulmonary abnormality is identified. ACT 112: Negative or not required by law. Electronically signed by: Jacob Albrecht M.D. 12/13/2023 9:[address] 12/13/23 13:05 CT head/brain wo con CLINICAL HISTORY: weakness Technique: Contiguous axial CT images of the head were acquired from the base of the skull to the vertex without intravenous contrast administration. Images were viewed in brain, subdural and bone windows. Automated dose lowering techniques and/or adjustment according to patient size were utilized for this exam. Comparison: None available at the time of this dictation. Findings: Areas of decreased attenuation are present in the periventricular and subcortical white matter bilaterally consistent with small vessel ischemic disease. Generalized cerebral atrophy with commensurate enlargement of the ventricles, sulci, and cisterns is also present. There is no acute intracranial hemorrhage or evidence of acute territorial infarction. No shift of the midline structures, mass effect, or extra-axial abnormalities are shown. Atherosclerotic calcifications are present in the intracranial segments of the internal carotid arteries. Imaged portions of the paranasal sinuses and mastoid air cells are clear. The orbits appear normal. There are no acute fractures of the calvaria or scalp swelling. Impression: No acute intracranial hemorrhage, no evidence of acute territorial infarction or other acute intracranial disease process. ACT 112: Negative or not required by law. Electronically signed by: Rafal Persaud M.D. 12/13/2023 1:54 PM Head CTA 12/13/23 13:05 CT angio head w con CLINICAL HISTORY: 88 years-old Male with weakness. Acute weakness with stroke like symptoms COMPARISON STUDY: Head CT of same day TECHNIQUE: Following the IV administration of 112 cc of Optiray, CT angiogram of the brain was performed from the skull base to the vertex. Images are reviewed in the axial, sagittal, and coronal planes. 3-D MIPS images are created and assessed. IV contrast was administered without complication. All measurements were obtained according to NASCET criteria. A dose lowering technique was utilized adhering to the principles of ALARA. FINDINGS: CT ANGIOGRAM OF THE BRAIN: The imaged bilateral internal carotid arteries are patent. The bilateral anterior and middle cerebral arteries are also patent. Areas of stenoses noted within the M2 and 3 segments of the bilateral middle cerebral arteries, notably with a 1 cm focus of high-grade stenosis of the right M2 segment on image 143 series 5. The vertebrobasilar system and posterior cerebral arteries are widely patent. There is no aneurysm, high-grade stenosis, or proximal branch occlusion identified. Dural sinuses appear patent. 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 Prior bilateral lens repair. IMPRESSION: 1. No aneurysm, dissection or arterial occlusion identified. 2. 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 ACT 112: Negative or not required by law. The above report was generated using voice recognition software. It may contain grammatical, syntax or spelling errors. Electronically signed by: Levi Tolliver M.D. 12/13/2023 2:30 PM Neck CTA 12/13/23 13:05 CT ANGIOGRAM OF THE NECK CLINICAL HISTORY: Generalized weakness. COMPARISON STUDY: No priors. TECHNIQUE: Following the IV administration of 112 of Optiray 320, CT angiogram of the neck was performed from the aortic arch to the skull base. Images are r eviewed in the axial, sagittal, and coronal planes. 3-D MIPS images are created and assessed. IV contrast was administered without complication. All measurements were calculated based on NASCET criteria. A dose lowering technique was utilized adhering to the principles of ALARA. CT DOSE: 1002.42 mGy.cm FINDINGS: Thoracic aorta: There is atherosclerotic calcification of the thoracic aorta. V isualized portions of the thoracic aorta are normal in caliber. The aortic arch demonstrates standard 3-vessel anatomy. Right carotid arterial system: The right common carotid artery is widely patent. Advanced atherosclerotic plaque in the carotid bulb causes less than 50% narrowing at the origin of the internal carotid artery. The remainder of the right internal carotid artery and external carotid artery are widely patent. There is ulcerated plaque seen in the proximal right internal carotid artery on axial image #217. Left carotid arterial system: The left common carotid artery is widely patent noting advanced atherosclerotic plaque and irregularity. Advanced atherosclerotic plaque in the carotid bulb causes less than 50% stenosis of the origin of the left internal carotid artery. The remainder of the internal carotid arteries widely patent. There is moderate focal stenosis at the origin of the left external carotid artery. Vertebral arteries: The vertebral arteries are widely patent bilaterally and codominant. Subclavian arteries: Widely patent bilaterally. Jugular veins: Patent bilaterally. Brain parenchyma: The visualized brain parenchyma the skull base is within n ormal limits. Lung apices: There is advanced emphysema. Partially visualized upper lobe lung parenchyma otherwise appears clear. Soft tissues: The visualized pharyngeal soft tissues are normal in appearance noting angiographic phase technique. The oropharyngeal airway appears widely patent. The salivary and thyroid glands are normal in appearance. No cervical lymphadenopathy is seen. A radiodense/metallic foreign body seen in the soft tissues of the anterior right lower neck on image #178. Skeletal structures: The skeletal structures are osteopenic. The visualized calvarium at the skull base appears intact. The imaged cervical spine is within normal limits. Sinuses and mastoids: The visualized paranasal sinuses are clear. The mastoid air cells are well pneumatized. Cerumen is noted in the external auditory canals. IMPRESSION: 1. Atherosclerotic plaque in the carotid bulbs causing less than 50% luminal narrowing at the origin of both internal carotid arteries. 2. There is moderate focal stenosis at the origin of the left external carotid artery. 3. Ulcerated plaque is seen in the proximal right ICA. 4. Emphysema. 5. A radiodense/metallic foreign body is seen in the soft tissues of the right lower neck. ACT 112: Negative or not required by law. Electronically signed by: Jacob Albrecht M.D. 12/13/2023 1:44 PM Supervising Physician Co-Signing Physician Notes Patient is an 88-year-old male with past medical history of left eye blindness due to unclear etiology, presents with history of worsening generalized weakness, ambulatory dysfunction bilateral joint stiffness especially in the morning, balance issues with gait. Patient is a poor historian. He also states having muscle pain especially bilateral thighs. Patient and patient's son denies any prior history of strokes. Please review HPI for complete details of presentation. Patient was noted to have elevated WBC, ESR, CRP. Serology for Lyme screen negative. Other rickettsial serology pending. CT head showed no acute intracranial abnormality. CTA head showed high-grade stenosis involving M2 branch of the right middle cerebral artery. CTA neck showed atherosclerotic plaque in the carotid bulbs causing less than 50% narrowing at the origin of both internal carotid arteries, also noted moderate focal stenosis at the origin of the left external carotid artery and ulcerated plaque in the proximal right ICA. Incidentally noted to have a metallic foreign body in the soft tissues of the right lower neck. EKG showed sinus tachycardia with some PACs and PVCs. On exam patient is chronically appearing, thin, frail, no apparent distress, normocephalic atraumatic, left eye blindness, lungs are clear to auscultation, S1-S2, no murmur, no pedal edema, left shoulder decreased range of movement, grossly moves all extremities, strength normal. Patient is being managed for hypertensive urgency, cannot rule out CVA, possible rheumatological disorder like polymyalgia rheumatica/myositis/RA. Could not get MRI due to metallic foreign body in the neck. Consulted neurology, neurochecks. Update lipid panel, A1c. Check resting echo. Started on amlodipine. Rheumatological workup ordered. Will need follow-up with rheumatology as outpatient. PT OT, fall precautions. Agree with checking TSH, B12, vitamin D levels. Obtain shoulder x-ray. I personally interviewed and examined at bedside. Patient's care is coordinated with Nathaniel PENG. I have reviewed the advanced practiti jesse's documentation, and I agree with plan of care. Please refer to the documentation above for details of patient's presentation and for discussion of other issues. I spent a total [id number] coordinating, documenting, and providing care for this patient excluding time spent in the performance of separately billed services.
[2023-12-13] MEDS ORDERED: PHARMACIST DISCHARGE MED REC CONSULT PRN (16:30)
[2023-12-13] MEDS ORDERED: hydrALAZINE HCL 20 MG/ML VIAL IV PRN (16:30)
--- NOTE | 2023-12-13 19:04 | XRay Report ---
XR shoulder LT min 2V routine CLINICAL HISTORY: shouldr pain TECHNIQUE: 3 views of the left shoulder were obtained. Comparison: None available at the time of this dictation. FINDINGS: There is no evidence of an acute fracture. Joint spaces are well-preserved. The overlying soft tissue s are unremarkable. The visualized portions of the lungs are clear. IMPRESSION: No evidence of acute osseous injury. ACT 112: Negative or not required by law. Electronically signed by: Rafal Persaud M.D. 12/13/2023 7:02 PM
--- NOTE | 2023-12-13 19:06 | Neurology Consultation ---
Date of Consultation December 13, 2023 Assessment & Plan (1) Polymyalgia rheumatica: Proximal muscle and joint pain/weakness in the setting of elevated ESR and CRP, worse in the morning and better with movement is consistent with PMR. Recommend further management per medicine/rheumatology. Some C-spine pathology could be contributing however we are unable to obtain an MRI and at 88 he is likely a poor surgical candidate for cervical spine surgery. This is not consistent with a myopathy, neuropathy, myasthenia or GBS. No further neurologic workup. Telehealth Consultation Telehealth Information Telehealth Information: I performed this visit using a real-time telehealth connection between my location and the patients location ([facility]). After connecting through interactive tele-video, patient was identified by name and date of and/or wristband check.Patient (or authorized healthcare sales representative groceries) was informed that this was a telemedicine visit and it was being conducted confidentially over secure lines. My office door was closed and no one else was present in the room with me.Patient (or authorized healthcare sales representative groceries) provided consent to proceed with the visit, expressed an understanding of privacy and security of the telemedicine visit, and gave permission to have a hospital sales representative groceries in the room in order to assist with the visit and to conduct portions of the visit, as needed. I informed the patient (or authorized healthcare sales representative groceries) that I reviewed their record and presented the opportunity for them to ask any questions regarding the visit today. The patient agreed to participate. History of Present Illness Reason for Consultation: Subacute Weakness Requesting Physician: Dr. Murphy Attending Physician: Kristofer Murphy MD History of Present Illness Deni Shaver is an 88 yo M presenting with progressive generalized weakness over the past month. The patient reports that he has difficulty moving in the morning and then as he is able to move he has less difficulty. There is no bowel or bladder symptoms, no swallowing difficulty or vision changes/double vision. He denies any specific muscle pain but pain more in the joints, especially the shoulders and hips. No fever, no recent illnesses. 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 Patient has not fallen but did fall a year ago and does believe that some of his decline began then as well. Hes often outdoors but denies any tick exposure specifically. Allergies Allergy/AdvReac Type Severity Reaction Status Date / Time No Known Allergies Allergy Unverified 12/13/23 11:05 Home Medications Medication Instructions Recorded Confirmed Type bimatoprost 0.01 % eye drops 1 drp ophthalmic (eye) BID 12/13/23 12/13/23 History (Lumigan) brinzolamide 1 %-brimonidine 0.2 % 1 drp OPL BID 12/13/23 12/13/23 History eye drops,suspension (Simbrinza) famciclovir 500 mg tablet 500 mg PO DAILY 12/13/23 12/13/23 History ibuprofen 1 tab PO DIRECTED PRN Pain 12/13/23 12/13/23 History Patient History Social History Smoking Status: Former smoker Tobacco Type: Cigarettes and Cigars Second Hand Exposure: No; Do You Dip or Chew Tobacco: No; Tobacco Cessation Education Requested by Patient: No Hx Alcohol Use: Yes Alcohol type: beer Hx Substance Use: No Preferred Language: Swedish Applique Cutter Required: No Beliefs That Will Affect Care: None Current Living Situation: Spouse Feels Safe at Home: Yes Safety Concerns: Feels Safe At This Time Assistive Devices: None Review of Systems +Muscle pain and weakness Physical Exam Awake and alert, oriented to situation. Speech fluent without dysarthria. No neck weakness, no ocular movement abnormalities. Significant upper extremity limb girdle weakness but antigravity throughout. No distal weakness. Results & Data Vital Signs (Past 12 Hours) Vital Signs Temp Pulse Pulse Resp BP BP Pulse Ox 12/13/23 18:08 12/13/23 16:30 36.8 C 86 18 107/82 95 12/13/23 15:42 93 H 20 94 12/13/23 15:30 172/96 H 12/13/23 15:10 91 H 159/91 H 96 12/13/23 14:00 86 19 187/98 H 92 12/13/23 12:54 88 12/13/23 12:00 90 17 172/86 H 95 12/13/23 10:12 70 94 12/13/23 10:12 70 18 174/83 H 97 12/13/23 08:51 88 12/13/23 08:22 90 12/13/23 08:22 36.4 C L 108 H 20 155/77 H 90 O2 Del Method 12/13/23 18:08 Room Air 12/13/23 16:30 Room Air 12/13/23 15:42 Room Air 12/13/23 15:30 12/13/23 15:10 Room Air 12/13/23 14:00 Room Air 12/13/23 12:54 12/13/23 12:00 Room Air 12/13/23 10:12 Room Air 12/13/23 10:12 Room Air 12/13/23 08:51 12/13/23 08:22 Room Air 12/13/23 08:22 Room Air Laboratory Results Elevated ESR and CRP Diagnostic Findings 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
[2023-12-13] MEDS: amLODIPine BESYLATE 5 MG TAB PO SCH (22:16)
[2023-12-13] MEDS: BRIMONIDINE TARTRATE 0.2% 5ML OPL SCH (22:17)
[2023-12-13] MEDS: BIMATOPROST 0.01% OP SOLN 2.5 ML BTL OP SCH (22:18)
[2023-12-13] MEDS: HEPARIN SOD 5,000 UNIT/0.5 ML VIAL SQ SCH (22:18)
[2023-12-13] MEDS: BRINZOLAMIDE (AZOPT) OPS 10 ML BTL OPL SCH (22:19)
[2023-12-14 07:09] LABS: Basophils # (auto) 0.03 K/uL (0.00-0.20); Basophils % (auto) 0.2 %; Eosinophils # (auto) 0.02 K/uL (0.00-0.50); Eosinophils % (auto) 0.2 %; Hematocrit (blood only) 37.1 % (42.0-52.0); Hemoglobin 12.3 g/dl (14.0-18.0); Immature Granulocytes # (auto) 0.06 K/uL (0.01-0.20); Immature Granulocytes % (auto) 0.5 %; Lymphocytes # (auto) 1.41 K/uL (1.20-3.40); Lymphocytes % (auto) 11.2 %; Mean Corpuscular Hemoglobin 28.4 pg (25.0-34.0); Mean Corpuscular Hgb Conc 33.2 g/dL (32.0-36.0); Mean Corpuscular Volume 85.7 fL (80.0-100.0); Mean Platelet Volume 9.1 fL (9.4-12.4); Monocytes # (auto) 1.19 K/uL (0.11-0.59); Monocytes % (auto) 9.4 %; Neutrophils % (auto) 78.5 %; Platelet Count 623 K/uL (130-400); RDW Standard Deviation 37.5 fL (36.4-46.3); Red Blood Count 4.33 M/uL (4.70-6.10); White Blood Count 12.61 K/ul (4.8-10.8)
[2023-12-14 07:23] LABS: BUN Creatinine Ratio 20.5 (10-20); Calcium 9.2 mg/dl (8.6-10.3); Chol HDL Ratio 4.2 (0-5); Creatinine Clr Calc Pharmacy 55.8 ml/min; Magnesium 2.1 mg/dl (1.7-2.4)
[2023-12-14 07:49] LABS: Folate (Folic Acid),Ser orPlas 11.42 ng/ml (>5.38)
[2023-12-14 08:07] LABS: Estimated Average Glucose 131 mg/dl; Hemoglobin A1C 6.2 % (4.5-5.6)
[2023-12-14] MEDS: predniSONE 20 MG TAB PO SCH (08:31)
[2023-12-14] MEDS: ASPIRIN 81 MG ECTAB PO SCH (08:37)
--- NOTE | 2023-12-14 11:26 | Electrocardiogram Report ---
Test Reason : Blood Pressure : */* mmHG Vent. Rate : 81 BPM Atrial Rate : 81 BPM P-R Int : 148 ms QRS Dur : 86 ms QT Int : 388 ms P-R-T Axes : 66 37 18 degrees QTcB Int : 450 ms Normal sinus rhythm Normal ECG When compared with ECG of 13-Dec-2023 08:54, Premature ventricular complexes are no longer Present Premature atrial complexes are no longer Present Sinus rhythm is no longer with 2nd degree A-V block (Mobitz I) Confirmed by Toy Foster ([id number]) on 12/14/2023 11:26:24 AM Referred By: REFERRED SELF Confirmed By: Toy Foster
[2023-12-14 11:34] VITALS: BP 169/70; PULSE 82; RESP 18; TEMP 97.9; O2SAT 96
--- NOTE | 2023-12-14 13:41 | Discharge Summary ---
Date of Service December 14, 2023 Admission HPI Per Admitting Provider The patient is an 88-year-old male with past medical history of left eye blindness and no other significant past medical history who presents to the ED on 12/13/2023 with complaints of worsening weakness. The patient is a poor historian. The patient son is at bedside and the patient lives with his currently. The patient reports his weakness started about a month ago and started with thigh pain on the left side. He reports it is hard for him to get up originally in the morning but once he starts to move his legs are less stiff but does report an unsteady gait. He reports over the past few days his arms became weak bilaterally. He reports some associated shoulder pain. He denies any history of autoimmune disorders. He denies any family history of autoimmune disorders. He denies any recent travel. [place] does [place] area but denies any known recent tick bites. On exam, the patient is slow to respond. There is equal strength in his bilateral extremities. He is unable to lift his arms up high but is able to hold his arms if passive range of motion is initiated. Patient denies any shortness of breath or chest pain. He denies any trouble swallowing. He denies any blurry vision. Patient's mental baseline is unclear. 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 Atherosclerotic plaque in the carotid bulbs causing less than 50% luminal narrowing at the origin of both internal carotid arteries. 2. There is moderate focal stenosis at the origin of the left external carotid artery. 3. Ulcerated plaque is seen in the proximal right ICA. 4. Emphysema. 5. A radiodense/metallic foreign body is seen in the soft tissues of the right lower neck. The patient will be admitted for rule out stroke and neurological workup Admission Exam Per Admitting Provider Constitutional: WD/WN, vitals as above well developed; no acute distress Eyes: PERRL, conjunctivae normal, anicteric sclerae (Left eye blindness) ENMT: external ear and nose normal, oropharynx normal Neck: trachea midline, no thyromegaly Respiratory: normal respiratory effort, lungs clear to auscultation Cardiovascular: RRR, no murmur, no edema Chest (Breasts): normal inspection/palpation of breasts Gastrointestinal (Abdomen): normal bowel sounds, soft, nontender, no hepatosplenomegaly Musculoskeletal: no cyanosis or clubbing, extremities motor strength 5/5 Skin: no rashes, warm and dry (Bilateral hand swelling) Neurologic: PERRL, EOMI, accommodation nl, no face palsy, no dysarthria (Delayed response time, bilateral upper extremity weakness, reflexes intact) moves all extremities Psychiatric: A+Ox3, euthymic affect (Poor historian) Lymphatic: no cervical or axillary lymphadenopathy Principal Diagnosis Polymyalgia rheumatica Discharge Exam Constitutional: WD/WN, vitals as above, NAD, sitting up in bed, pleasant, conversing easily Respiratory: normal respiratory effort, lungs clear to auscultation, no wheeze, rales, rhonchi. Normal insp/exp effort, no accessory muscle use Cardiovascular: RRR, no murmur, no edema Vessels: no JVD or carotid bruit Chest: normal inspection of chest Abdomen: normal bowel sounds, soft, nontender, no hepatosplenomegaly Musculoskeletal: no cyanosis or clubbing, extremities motor strength 5/5 Skin: no rashes, warm and dry normal turgor Neurologic: PERRL, EOMI, accommodation nl, no face palsy, no dysarthria CN's II- XI intact bilaterally and moves all extremities Psychiatric: A+Ox3, euthymic affect Discharge Data Allergies Allergy/AdvReac Type Severity Reaction Status Date / Time No Known Allergies Allergy Unverified 12/13/23 11:05 Consultations 12/13/23 14:57 ED Decision to Admit Stat 12/13/23 16:30 Consult Neurology Routine Consult Vascular Surgery Routine Ordered Studies 12/13/23 13:05 CT angio head w con Stat CT angio neck with con Stat CT head/brain wo con Stat Hospital Course (1) Polymyalgia rheumatica: (2) Weakness: (3) HTN (hypertension): Plan The patient is an 88-year-old male with past medical history of left eye blindness and no other significant past medical history who presents to the ED on 12/13/2023 with complaints of worsening morning stiffness in his shoulder and hip joint along with proximal weakness of the arm and thighs. The symptoms have been going on for last few weeks. Patient underwent stroke workup on admission which included CT head, CTA head and neck. CT head did not show any acute finding. CTA head and neck showed atherosclerotic plaque in the carotid bulbs causing less than 50% narrowing at the origin of both internal carotid artery. ESR was elevated to 64 mm/h and CRP was elevated to 9. Neurology was consulted for comanagement. Based on his history and clinical presentation; diagnosis of polymyalgia rheumatica was made. He denied any headache or jaw claudication. Patient reported significant improvement in his symptoms overnight with resolution of morning stiffness and improvement in his proximal muscle weakness. Patient was discharged on 20 mg of prednisone. He was recommended to follow-up with his primary care doctor and obtain referral for rheumatology. Discussed with patient and patient's about importance of close follow-up. They were recommended not to stop steroid abruptly. Discussed adverse effects related to steroid as well. Discussed plan of care with Dr. Pedraza from Rheumatology who agrees with Prednisone 20mg once a day. He was also started on aspirin and Lipitor for the atherosclerotic plaque. He was also started on amlodipine for high blood pressure. Please note the above document was generated using voice recognition software. It may contain grammatical, syntax or spelling errors. Any formal questions or concerns about the content, text or information contained within the body of this dictation should be directly addressed to the provider for clarification Total Time Total Time Spent Total Time Spent (In Minutes): 35 Total Time Includes: Examination of the Patient, Discharge Planning, Medication Reconciliation, Communication With Other Providers and Other Discharge Plan Discharge Items Patient Disposition: Home - Self-Care Reason For Visit: WORSENING WEAKNESS Discharge Diagnosis: Polymyalgia rheumatica Activity: Resume your previous activity Non-emergency contact: Primary Care Provider Call non-emergency contact if: you have any medication questions and your symptoms worsen Follow-up/Referrals: Kishore Pedraza MD [Physician] - (Please request Dr Tomlinson to send a referral to Dr Jones, Rheumatology.) Paul Tomlinson PA-C [Primary Care Provider] - 12/20/23 10:30 am Diet: Regular Addtl Attending Provider Instructions: You were admitted to the hospital due to stiffness and weakness of your upper and lower muscles. The most likely cause for it is called autoimmune condition called polymyalgia rheumatica. You were prescribed prednisone 20 mg once a day for next 4 weeks. You will need referral from your primary care doctor for a r heumatologist to determine duration of the treatment. Please do not stop the steroids abruptly. Please discuss with your primary care doctor if you run out of the prescription. You have some blood test pending. The results will be faxed over to your primary care doctor. The CT scan of the head and neck showed blockages of the vessels of the neck up to 50%. You also have ulcerative plaque in the proximal part of one of the neck vessels. You are prescribed aspirin and Lipitor for it. Please monitor for muscle pain/aches while you are on Lipitor. Please reach out to your primary care doctor if you start to have muscle aches/pain You are prescribed amlodipine 5 mg once a day for high blood pressure. Pending Studies at Discharge: Yes Studies:: Rheumatoid factor, CCP, SIRISHA, ANCA, Jo1 antibody, Acetylcholine receptor antibody Stand-Alone Forms: My [facility] [employer], Smoking Cessation Medications and DC Order Prescriptions: New amlodipine [Norvasc] 5 mg Tablet 5 mg PO QAM Qty: 30 0RF aspirin 81 mg Tablet,Delayed Release (Dr/Ec) 81 mg PO QAM Qty: 30 0RF prednisone 20 mg tablet 20 mg PO DAILY 28 Days Qty: 28 0RF atorvastatin [Lipitor] 10 mg tablet 10 mg PO DAILY Qty: 30 0RF Continued Lumigan 0.01 % drops 1 drp ophthalmic (eye) BID Rx Instructions: original: 1 drp eye qpm per spouse, he does bid Simbrinza 1-0.2 % drops,suspension 1 drp OPL BID Discontinued famciclovir 500 mg tablet 500 mg PO DAILY ibuprofen 1 tab PO DIRECTED PRN (Reason: Pain) Rx Instructions: OTC unknown dose Discharge Orders: Discharge Order (Routine); Ordered 12/14/23 Ordered By: Bandar Mcelroy Admission Data Admit Date/Time: 12/13/23 15:04 Attending Provider: Bandar Mcelroy Admit Provider: Kristofer Murphy Primary Care Provider: Paul Tomlinson. Other Providers: Kristofer Murphy; Anurag Hernandez; Shawn Badillo
[2023-12-15 17:01] LABS: Babesia microti DNA Not Detected (Not Detected)
[2023-12-19 22:07] LABS: ANCA Screen Negative (Negative); Anti Nuclear Antibody Screen NEGATIVE (NEGATIVE); Cyclic Citrullinated Pep IgG <16 UNITS; JO 1 Antibody <1.0 NEG AI (<1.0 NEG); RPR (Monitor) NON-REACTIVE (NON-REACTIVE); Receptor Binding Ab <0.30 nmol/L; Rheumatoid Factor 17 IU/mL (<14)
== END 2023-12-14 16:07 | disposition home or self-care (01) | DRG 547 ==
LOC: ED 08:19 → SUATTDRO 15:04 → INTOOBSV 15:04 → 2S 15:04